=== PATIENT | male | born 1950 | race Caucasian/White ===

== ENCOUNTER 2019-05-10 11:49 | Outpatient (CLI) | payer MEDICARE ==
--- NOTE | 2019-05-11 15:23 | CT Report ---
Reason: F/U PULMONARY NODULES Procedure Date: 05/10/2019 Accession Number: [id number] / [id number] Procedure: CT - CHEST WO CPT Code: FULL RESULT: EXAM: CT CHEST WITHOUT IV CONTRAST EXAM DATE: 05/10/2019 12:13 PM. CLINICAL HISTORY: Follow up pulmonary nodules. COMPARISONS: No comparison studies are available. The patient is new to the practice of Dr. Childs. Reported previous imaging done with [facility] ([place] is not found. TECHNIQUE: Routine helical CT imaging was performed through the chest. IV contrast: None. Reconstructions: Coronal and sagittal. In accordance with CT protocol optimization, one or more of the following dose reduction techniques were utilized for this exam: automated exposure control, adjustment of mA and/or KV based on patient size, or use of iterative reconstructive technique. FINDINGS: Lungs/Pleura: There are innumerable pulmonary nodules. Nodules measuring greater than 3 mm as well as nodules with suspicious morphology are cataloged as follows: Right upper lobe: 0.7 cm apical nodular scarring image 10 series 4. 4 mm nodule image 23. 4 mm nodule image 24. 6 mm nodule image 26. 4 mm nodule image 28. 3 mm nodule image 33. Right middle lobe: 0.8 cm nodule image 43. 0.4 cm nodule image 38. Right lower lobe: 4 mm nodule image 41, two 4 mm nodules and a 5 mm nodule image 39. 0.7 cm nodule image 31. Left upper lobe: Stellate 3 mm nodule image 22, 5 mm nodule image 27, 6 mm fissural nodule image 29, 0.5 cm nodule image 31, 0.4 cm nodule image 39. Left lower lobe: 4 mm nodule image 42, potential 4 mm nodule on image 39, two 0.5 cm nodules on image 34. Pulmonary background overall demonstrates fine peripheral interstitial thickening, small amount of bilateral posterior dependent changes as well as mild emphysema predominantly in the upper lobes. No pleural effusion or pneumothorax. Mediastinum: There are severe left-sided coronary calcifications with what appears to be a proximal LAD stent in place. Mild to moderate aortic calcifications. No pericardial effusion or mediastinal lymphadenopathy by size criteria. No definite hilar lymphadenopathy is detected, evaluation is somewhat limited without IV contrast. Bones: No aggressive osseous lesions. Visualized Abdomen: Unremarkable. Other: None. IMPRESSION: Innumerable lung nodules measuring up to 0.8 cm. Management in absence of a prior comparison should proceed conservatively with the assumption that all nodules are previously uncharacterized. Based on this, recommend follow-up of the described nodule(s) according to the following guidelines: Fleischner Society Recommendations 2017 MacMahon et al. Radiology 2017 Solid Nodules-Low Risk Patients: 6-8mm (multiple) -CT at 3-6 months, then consider at CT 18-24 months Solid Nodules-High Risk Patients: 6-8mm (multiple) -CT at 3-6 months, then CT at 18-24 months RADIA
== END 2019-05-10 11:50 | disposition home or self-care (01) ==
LOC: DI 11:49
PROVIDERS: ATTEND Internal Medicine
DX: R91.8 Other nonspecific abnormal finding of lung field (principal)
CPT/HCPCS: 71250

== ENCOUNTER 2019-11-24 11:06 | Outpatient (CLI) | payer MEDICARE ==
--- NOTE | 2019-11-24 14:45 | XRAY Report ---
Reason: COUGH Procedure Date: 11/24/2019 Accession Number: [id number] / [id number] Procedure: XR - Chest 2 View X-Ray CPT Code: 05812 Final Report FULL RESULT: EXAM: CHEST RADIOGRAPHY EXAM DATE: 11/24/2019 11:36 AM. CLINICAL HISTORY: Cough. COMPARISON: None. TECHNIQUE: 2 views. FINDINGS: Lungs/Pleura: Increased opacities are seen in the lingula. There is no overt pulmonary edema. No pleural effusion or pneumothorax. Mediastinum: Heart and mediastinal contours are unremarkable. Other: None. IMPRESSION: Increased lingular opacities, potentially airspace disease. RADIA
== END 2019-11-24 11:07 | disposition home or self-care (01) ==
LOC: DI 11:06
PROVIDERS: ATTEND Internal Medicine
DX: R91.8 Other nonspecific abnormal finding of lung field (principal)
CPT/HCPCS: 71046

== ENCOUNTER 2020-08-17 12:53 | Outpatient (CLI) | payer MEDICARE | END 2020-08-17 12:54 | disposition home or self-care (01) | LOC: COV 12:53 | PROVIDERS: ATTEND Surgery | DX: Z01.818 Encounter for other preprocedural examination (principal); K40.90 Unilateral inguinal hernia, without obstruction or gangrene, not specified as recurrent; Z20.828 Contact with and (suspected) exposure to other viral communicable diseases ==

== ENCOUNTER 2020-08-31 16:34 | Outpatient (CLI) | payer MEDICARE | END 2020-08-31 16:35 | disposition home or self-care (01) | LOC: COV 16:34 | PROVIDERS: ATTEND Surgery | DX: Z01.818 Encounter for other preprocedural examination (principal); Z20.828 Contact with and (suspected) exposure to other viral communicable diseases ==

== ENCOUNTER 2020-09-04 08:56 | Day surgery (SDC) | payer MEDICARE ==
[~2020-09-04 08:56] MED LIST: CEFAZOLIN SODIUM IN 0.9 % NACL 0 GM/0 ML BAG IV ONE
[2020-09-04] MEDS ORDERED: CEFAZOLIN SODIUM IN 0.9 % NACL 2 GM/100 ML BAG IV ONE (09:08)
[2020-09-04] MEDS ORDERED: BUPIVACAINE 0.25% PF 30 ML VIAL ONE ×2 (09:30→11:14)
[2020-09-04] MEDS ORDERED: LACTATED RINGERS 1,000 ML IV ONE (09:35)
--- NOTE | 2020-09-04 09:40 | ANESTHESIA ---
Pre-Anesthesia VS, & Labs - Diagnosis iguinal hernia - Procedure left open inguinal hernia repair Vital Signs: Temp Pulse Resp BP Pulse Ox 36.1 C L 58 L 18 150/89 H 99 09/04/20 09:00 09/04/20 09:00 09/04/20 09:00 09/04/20 09:00 09/04/20 09:00 Height: 5 ft 11 in Weight (kg): 94.8 kg Body Mass Index: 29.1 BMI Classification: Overweight - NPO >8 hours - Lab Results Lab results reviewed: Yes Home Medications and Allergies Home Medications: Ambulatory Orders Aspirin [Aspirin EC] 81 mg PO DAILY 08/13/20 Atorvastatin Calcium 20 mg PO DAILY 08/13/20 Cholecalciferol (Vitamin D3) [Vitamin D3] 50 mcg PO DAILY 08/13/20 Clopidogrel [Plavix] 75 mg PO DAILY 08/13/20 Losartan [Cozaar] 50 mg PO DAILY 08/13/20 Metoprolol Tartrate 25 mg PO BID 08/13/20 Nitroglycerin [Nitrostat] 0.4 mg SL Q5MIN PRN 08/13/20 Omeprazole 20 mg PO DAILY 08/13/20 Aspirin [Aspirin EC] 81 mg PO DAILY 08/13/20 Atorvastatin Calcium 20 mg PO DAILY 08/13/20 Cholecalciferol (Vitamin D3) [Vitamin D3] 50 mcg PO DAILY 08/13/20 Clopidogrel [Plavix] 75 mg PO DAILY 08/13/20 Losartan [Cozaar] 50 mg PO DAILY 08/13/20 Metoprolol Tartrate 25 mg PO BID 08/13/20 Nitroglycerin [Nitrostat] 0.4 mg SL Q5MIN PRN 08/13/20 Omeprazole 20 mg PO DAILY 08/13/20 Allergies/Adverse Reactions: Allergies Allergy/AdvReac Type Severity Reaction Status Date / Time No Known Drug Allergies Allergy Verified 08/13/20 11:46 Anes History & Medical History - Anesthetic History Anesthesia Complications: reports: No previous complications Family history of Anesthesia Complications: Denies Family history of Malignant Hyperthermia: Denies - Medical History Cardiovascular: reports: High cholesterol, Coronary artery disease, [place] Pulmonary: reports: Sleep apnea (doesn't wear CPAP) Gastrointestinal: reports: GERD Urinary: reports: None Musculoskeletal: reports: None Endocrine/Autoimmune: reports: None Skin: reports: None - Surgical History General: Cholecystectomy, Colonoscopy Cardiothoracic: Coronary stent Results - Echo Results Echo Results: Report reviewed (EF 46%) Exam General: Alert, Oriented x3, Cooperative, No acute distress Dental: WNL Mouth Openin Fingerbreadth Neck Mobility: Normal Mallampati classification: II Respiratory: Lungs clear, Normal breath sounds, No respiratory distress, No accessory muscle use Cardiovascular: Regular rate, Normal S1, Normal S2, No murmurs Plan Anesthesia Type: General, MAC (prefers MAC) Consent for Procedure(s) Verified and Reviewed: Yes Code Status: Attempt Resuscitation ASA classification: 3-Severe systemic disease Is this case an emergency?: No
[2020-09-04] MEDS ORDERED: ePHEDrine 50 MG/ML VIAL IVP PRN (09:59)
[2020-09-04] MEDS ORDERED: ATROPINE ABBOJECT 1 MG/10 ML SYRINGE IVP PRN (09:59)
[2020-09-04] MEDS ORDERED: HYDROmorphone 0.5 MG/0.5 ML SYRINGE IVP PRN (09:59)
[2020-09-04] MEDS ORDERED: fentaNYL 100 MCG/2 ML VIAL IVP PRN (09:59)
[2020-09-04] MEDS ORDERED: METOCLOPRAMIDE 10 MG/2 ML VIAL IVP PRN (09:59)
[2020-09-04] MEDS ORDERED: NALOXONE 0.4 MG/ML VIAL IVP PRN (09:59)
[2020-09-04] MEDS ORDERED: ONDANSETRON 4 MG/2 ML VIAL IVP PRN (09:59)
[2020-09-04] MEDS ORDERED: MORPHINE 2 MG/ML CARPUJECT IVP PRN (09:59)
[2020-09-04] MEDS ORDERED: LACTATED RINGERS 1,000 ML IV SCH (10:00)
[2020-09-04] MEDS ORDERED: LIDOCAINE 1% 50 ML MDV ONE (10:30)
[2020-09-04] MEDS ORDERED: PROPOFOL 200 MG/20 ML VIAL IVP ONE (10:36)
[2020-09-04] MEDS ORDERED: MIDAZOLAM 2 MG/2 ML VIAL IVP ONE (10:36)
[2020-09-04] MEDS ORDERED: fentaNYL 100 MCG/2 ML VIAL IVP ONE (10:36)
[2020-09-04] MEDS ORDERED: BUPIVACAINE 0.25% PF 30 ML VIAL SUBQ ONE ×2 (11:00)
[2020-09-04] MEDS ORDERED: LIDOCAINE 1% 50 ML MDV SUBQ ONE ×2 (11:00)
[2020-09-04] MEDS ORDERED: LACTATED RINGERS 500 ML IV ONE (12:20)
[2020-09-04] MEDS ORDERED: oxyCODONE 5 MG TABLET PO PRN (12:26)
--- NOTE | 2020-09-04 12:31 | OPERATIVE REPORT ---
Operative Report - General Procedure Date: 09/04/20 Planned Procedure: open left inguinal hernia repair with mesh Pre-Op Diagnosis: left inguinal hernia Procedure Performed: open left inguinal hernia repair with mesh Post Op Diagnosis: same - Procedure Note Primary Surgeon: kavon valentin Anesthesia Technique: Local, MAC Estimated Blood Loss (mL): 0 Findings: large indirect
[2020-09-04] MEDS ORDERED: oxyCODONE 5 MG TABLET ONE (13:00)
[2020-09-04 13:35] VITALS: BP 122/80
--- NOTE | 2020-09-04 13:36 | ANESTHESIA POST OP EVALUATION ---
Anesthesia Post Eval - Post Anesthesia Eval Vitals: Last Vital Signs Temp 36.0 C L 09/04/20 13:34 Pulse 63 09/04/20 13:34 Resp 16 09/04/20 13:34 BP 122/80 09/04/20 13:34 Pulse Ox 97 09/04/20 13:34 CV Function Including HR & BP: positive: Stable Pain Control: positive: Satisfactory Nausea & Vomiting: positive: Negative Mental Status: positive: Baseline Respiratory Status: Airway Patent Hydration Status: Satisfactory Anesthesia Complications: positive: None
--- NOTE | 2020-09-04 16:44 | OPERATIVE REPORT ---
DATE OF SERVICE: 09/04/2020 Physician: Ismael Juares MD PREOPERATIVE DIAGNOSIS: Left inguinal hernia. POSTOPERATIVE DIAGNOSIS: Left inguinal hernia, very large, chronic, indirect. PROCEDURE PERFORMED: Open left inguinal hernia repair with mesh, [place]on. SURGEON: Ismael Juares MD HEALTH TECHNICIAN: None. ANESTHESIA: Monitored anesthesia care, IV sedation, local anesthesia. COMPLICATIONS: None. SPECIMEN: Small portion of herniated preperitoneal adipose tissue and large chronic indirect hernia sac removed, however, not sent for pathology. DRAINS: None. PROSTHETIC: Polypropylene mesh. INDICATIONS FOR PROCEDURE: Patient is a 69-year-old active gentleman with a symptomatic left inguina l hernia. He presents for open repair with mesh. Risks discussed, alternatives discussed. All ques tions answered and consent obtained. DESCRIPTION OF PROCEDURE: Patient was properly identified and brought to the operating room and plac ed in supine position. He voided prior to surgery. Monitored anesthesia care was given as well as I V sedation. He was prepped and draped in a sterile fashion and given preoperative antibiotics. Loca l anesthetic was given throughout the procedure. A 6 cm incision was made in the direction of Tammy 's lines, just cephalad of the pubic tubercle. Dissection proceeded with cutting current. The super ficial epigastric vein was identified, clamped, divided, and tied with 3-0 Vicryl. Dissection procee ded down to the aponeurosis. This was opened in the direction of its fibers, extending to the rn orthopedic al ring. The ilioinguinal nerve was kept with the cord structures. The cord structures were mobiliz ed and brought up. The shelving edge of Poupart's ligament was sharply developed and defined, as wel l as the pubic tubercle area. The iliohypogastric nerve was identified. He had a very large, chroni c, indirect hernia sac. This was mobilized away from the cord structures, opened. He had a small am ount of adipose tissue, likely a fatty appendage of the colon present, as well as a small amount of a scites, likely from intermittent bowel involvement. There was no evidence of a malignant process. T he indirect hernia sac was closed from the inside with a 2-0 silk pursestring suture. A small portio n of preperitoneal adipose tissue was mobilized away from the cord structures, clamped and divided, a nd tied with a 2-0 silk. A polypropylene mesh was cut to size and with tails and then secured with m ultiple interrupted 0 Ethibond or Ti-Cron sutures. Sutures were placed at the pubic tubercle, along the shelving edge of Poupart's ligament, and medially along the musculature or fascia of the internal oblique. The medial tail of the mesh was secured to the shelving border of Poupart's ligament with 2 interrupted 0 Ethibond or 0 Ti-Cron sutures, recreating the internal ring of appropriate size. The aponeurosis was closed with a running 2-0 Vicryl suture. Arie's was closed with interrupted 3-0 V icryl suture. Buried interrupted subdermal 3-0 Vicryl sutures were then placed. Skin was closed wit h a running 4-0 Monocryl subcuticular suture. Dressing was applied. He tolerated the procedure very well. TD: 09/04/2020 13:07
== END 2020-09-04 08:57 | disposition home or self-care (01) ==
LOC: SDS 08:56
PROVIDERS: ATTEND Surgery
PROC: 0YU60JZ Supplement Left Inguinal Region with Synthetic Substitute, Open Approach (ICD-10-PCS; principal; 2020-09-04 10:15)
DX: K40.90 Unilateral inguinal hernia, without obstruction or gangrene, not specified as recurrent (principal); G47.30 Sleep apnea, unspecified; I25.2 Old myocardial infarction
CPT/HCPCS: 49505; A9270; C1781; J7120

== ENCOUNTER 2020-12-14 09:16 | Outpatient (CLI) | payer MEDICARE ==
--- NOTE | 2020-12-14 10:19 | CT Report ---
PROCEDURE: CHEST WO INDICATIONS: MULTIPLE PULMONARY NODULES TECHNIQUE: Noncontrast 5 mm thick sections acquired from the pulmonary apices to the posterior costophrenic angl es. 7 mm thick coronal and sagittal MIP reformats were then acquired. For radiation dose reduction, the following was used: automated exposure control, adjustment of mA and/or kV according to patient size. COMPARISON: CXR 11/24/2019. CT chest 05/10/2019. FINDINGS: Image quality: Excellent. Lungs and pleura: Moderate paraseptal emphysema. Mild subpleural ground glass opacity which is simil ar to the prior exam from 2019. Several pulmonary nodules. For example: -Right middle lobe 7 mm, (4/190), previously 6 mm. -Right lower lobe superiorly 7 mm, (4/152), previously 7 mm. -Left lower lobe 6 mm, (4/170), previously 6 cm. No new or enlarging pulmonary nodules. No pulmonary mass. No acute air space opacities. No pleural e ffusions or pneumothorax. Central and peripheral airways are patent and normal in caliber. Mediastinum: Heart size is within normal limits. Moderate to severe coronary artery calcifications. No pericardial effusion. No mediastinal adenopathy by size criteria. Small AP window lymph node jorje suring 0.9 cm in short axis diameter, (3/23), unchanged. Thoracic aorta and central pulmonary arteri es are normal in size. Esophagus is normal in caliber. Small hiatal hernia. Bones and chest wall: No suspicious bony lesions. No vertebral body compression fractures. No axil mario or supraclavicular adenopathy by size criteria. Thyroid is unremarkable. Abdomen: Visualized upper abdominal solid organs and bowel loops appear normal in the absence of con trast. IMPRESSION: 1. Several scattered pulmonary nodules are stable compared to April 2019. Recommend follow-up CT of e chest in one year. 2. Similar emphysematous change and subpleural groundglass opacity. Reviewed by: Lincoln Elena MD on 12/14/2020 10:17 AM [facility] Approved by: Lincoln Elena MD on 12/14/2020 10:17 AM PST Station ID: [id number]
== END 2020-12-14 09:17 | disposition home or self-care (01) ==
LOC: DI 09:16
PROVIDERS: ATTEND Internal Medicine
DX: R91.8 Other nonspecific abnormal finding of lung field (principal); J43.9 Emphysema, unspecified